=== PATIENT | female | born 1990 | race Caucasian/White ===

== ENCOUNTER 2021-03-27 23:12 | Day surgery (SDC) | payer OTHER ==
[~2021-03-27] VITALS: Ht 162.6 cm; Wt 86.0 kg
--- NOTE | 2021-03-27 23:45 | NUR ---
C/O MISCARRIAGE, 07/22 PAIN LOWER ABDOMEN, G1, 12 WEEKS ALONG
[2021-03-27] MEDS ORDERED: ONDANSETRON 2MG/ML, 2ML ONE (23:47)
[2021-03-27] MEDS ORDERED: MORPHINE SULFATE 4 MG/ML, 1ML ONE (23:48)
[2021-03-27 23:55] LABS: BASOPHILS % (AUTO) 1 % (0-1); EOSINOPHILS % (AUTO) 2 % (1-7); LYMPHOCYTES % (AUTO) 38 % (22-44); MEAN CORPUSCULAR HEMOGLOBIN 31.2 pg (27.0-34.8); MEAN CORPUSCULAR HGB CONC 34.6 g/dL (32.4-35.8); MEAN PLATELET VOLUME 7.6 fL (7.4-10.4); MONOCYTES % (AUTO) 6 % (2-9); NEUTROPHILS % (AUTO) 54 % (42-75); PLATELET COUNT 235 x10^3/uL (130-400); RED BLOOD COUNT 4.27 x10^6/uL (3.82-5.3); RED CELL DISTRIBUTION WIDTH 12.7 % (9.6-15.2)
[2021-03-28] MEDS ORDERED: ONDANSETRON 2MG/ML, 2ML IVPush ONE
[2021-03-28 00:13] LABS: ALBUMIN 3.9 g/dL (3.4-5.0); ANION GAP 12 mmol/L (5-15); CALCIUM 8.8 mg/dL (8.5-10.1); CHLORIDE 105 mmol/L (98-107); CREATININE 0.78 mg/dL (0.55-1.02)
[2021-03-28] MEDS ORDERED: MORPHINE SULFATE 4 MG/ML, 1ML ONE ×2 (00:26→01:10)
--- NOTE | 2021-03-28 00:30 | NUR ---
Break RN: medicated patient per mar. 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
[2021-03-28] MEDS ORDERED: MORPHINE SULFATE 4 MG/ML, 1ML IVPush ONE ×2 (01:00)
--- NOTE | 2021-03-28 01:18 | NUR ---
CHAPERONED GRAUSE WITH VAG EXAM
[2021-03-28] MEDS ORDERED: MORPHINE SULFATE 4 MG/ML, 1ML IVPush PRN (01:30)
[2021-03-28] MEDS ORDERED: MISOPROSTOL 100 MCG TABLET PO ONE (01:30)
--- NOTE | 2021-03-28 01:40 | NUR ---
MEDICATED PER MAR
[2021-03-28] MEDS ORDERED: HYDROmorphone 1 MG/ML, 1ML INJ IV ONE (02:00)
[2021-03-28] MEDS ORDERED: MISOPROSTOL 200 MCG TABLET PO ONE (02:00)
[2021-03-28] MEDS ORDERED: HYDROmorphone 1 MG/ML, 1ML INJ ONE (02:03)
[2021-03-28] MEDS ORDERED: MISOPROSTOL 200 MCG TABLET ONE (02:15)
[2021-03-28] MEDS ORDERED: OXYTOCIN 10 UNITS/ML, 1ML ONE (02:15)
[2021-03-28] MEDS ORDERED: METHYLERGONOVINE 0.2 MG/ML IM ONE (02:16)
--- NOTE | 2021-03-28 02:25 | NUR ---
PENDING COVID TEST FOR SURGERY
[2021-03-28] MEDS ORDERED: SODIUM CHLORIDE 0.9% 1,000 ML IV ONE (02:30)
[2021-03-28] MEDS ORDERED: FENTANYL PF 250 MCG/5ML ONE (02:41)
[2021-03-28] MEDS ORDERED: MIDAZOLAM 1 MG/ML, 2ML ONE (02:41)
[2021-03-28] MEDS ORDERED: DEXAMETHASONE 4 MG/ML, 1ML ONE (02:45)
[2021-03-28] MEDS ORDERED: PROPOFOL 10 MG/ML, 20ML ONE (02:45)
[2021-03-28] MEDS ORDERED: KETOROLAC 30 MG/1 ML ONE (02:45)
[2021-03-28] MEDS ORDERED: NEOSTIGMINE 1 MG/ML, 10ML ONE (02:45)
[2021-03-28] MEDS ORDERED: SUCCINYLCHOLINE 20 MG/ML, 10ML ONE (02:45)
[2021-03-28] MEDS ORDERED: CEFAZOLIN 1,000 MG ONE (02:45)
[2021-03-28] MEDS ORDERED: ONDANSETRON 2MG/ML, 2ML ONE (02:45)
[2021-03-28] MEDS ORDERED: GLYCOPYRROLATE 0.2MG/1ML, 5ML ONE (02:45)
[2021-03-28] MEDS ORDERED: ROCURONIUM 10MG/ML,5ML ONE (02:45)
[2021-03-28] MEDS ORDERED: SCOPOLAMINE 1MG PATCH TD ONE (02:52)
--- NOTE | 2021-03-28 02:59 | NUR ---
PT TO OR AT TJIS TIME
[2021-03-28] MEDS ORDERED: PROMETHAZINE 25 MG/ML, 1ML IVPush PRN (03:00)
[2021-03-28] MEDS ORDERED: ACETAMINOPHEN 325 MG TABLET PO PRN (03:00)
[2021-03-28] MEDS ORDERED: HYDROmorphone 1 MG/ML, 1ML INJ IVPush PRN (03:00)
[2021-03-28] MEDS ORDERED: HALOPERIDOL 5 MG/ML IV PRN (03:00)
[2021-03-28] MEDS ORDERED: LABETALOL 5MG/ML, 20ML IV PRN (03:00)
[2021-03-28] MEDS ORDERED: hydrALAzine 20 MG/ML, 1ML IV PRN (03:00)
[2021-03-28] MEDS ORDERED: OXYcodone 5 MG/5 ML ORAL.SOL UDC PO PRN (03:00)
[2021-03-28] MEDS ORDERED: MEPERIDINE/PF 25MG/0.5ML IVPush PRN (03:00)
[2021-03-28] MEDS ORDERED: morphine SULFATE 10 MG/ML, 1ML IVPush PRN (03:00)
[2021-03-28] MEDS ORDERED: FENTANYL PF 100 MCG/2ML IV PRN (03:00)
[2021-03-28 04:00] VITALS: BP 106/75
[2021-03-28] MEDS ORDERED: IBUPROFEN 600 MG TABLET PO PRN (05:00)
== END 2021-03-28 05:56 | disposition home or self-care (01) ==
LOC: SDC 23:30 → ED 03-28 00:18 → UNDOADMIN 03-28 02:16 → EDIP 03-28 02:16 → 4NE 03-28 04:10 → UNDODISIN 03-28 05:56 → SDC 03-28 05:56
PROVIDERS: ATTEND Emergency Medicine
DX: O02.0 Blighted ovum and nonhydatidiform mole (principal); O03.4 Incomplete spontaneous abortion without complication; Z20.822 Contact with and (suspected) exposure to COVID-19; Z79.899 Other long term (current) drug therapy; Z88.2 Allergy status to sulfonamides
CPT/HCPCS: 36415; 59812; 76801; 80048; 82040; 84702; 85025; 86901; 87635; 88305; 96374; 96375; 99285; J0330; J0690; J1100; J1170; J1885; J2250; J2270; J2405; J2590; J2704; J2710; J3010; J7030; G0378; J2210